=== PATIENT | female | born 1970 | race Hispanic/Latino ===

== ENCOUNTER 2024-04-02 18:59 | Emergency (ER) | payer BC, OTHER ==
[~2024-04-02] VITALS: Ht 154.9 cm; Wt 115.7 kg
[2024-04-02 19:00] VITALS: BP 168/97; PULSE 87; RESP 16; TEMP 97.8
[2024-04-02] MEDS ORDERED: AMOX-427 PO (19:38)
== END 2024-04-02 19:49 | disposition home or self-care (01) ==
LOC: EDH 18:59
DX: L02.412 Cutaneous abscess of left axilla (principal); E11.9 Type 2 diabetes mellitus without complications; I10 Essential (primary) hypertension; Z98.890 Other specified postprocedural states